=== PATIENT | female | born 1935 | race Caucasian/White ===

== ENCOUNTER 2019-09-29 13:41 | Observation (INO) ==
[2019-09-29 14:41] LABS: Basophils % 0.6 % (0.0-0.8); Eosinophils # 0.1 10*3/uL (0.0-0.87); Eosinophils % 0.9 % (0.00-10.9); Hematocrit 42.5 VOL% (35.7-47.0); Hemoglobin 14.7 GM/DL (12.0-16.0); Immature Granulocytes % 0.1 %; Immature Granulocytes Absolute 0.01 #; Lymphocytes # 1.8 10*3/uL (1.4-4.0); Lymphocytes % 26.3 % (21.3-54.2); Mean Corpuscular HGB Conc 34.6 GM/DL (32-36); Mean Corpuscular Volume 89.1 FL (87-102); Mean Platelet Volume 9.3 FL (9.6-12.0); Monocytes % 5.9 % (1.7-12.7); Neutrophils % 66.2 % (38.7-73.9); Platelet Count 260 T/CUMM (130-400); Red Blood Count 4.77 MC/CUMM (3.8-5.5); Red Cell Distribution Width 12.7 % (9.3-17.3); White Blood Count 6.8 T/CUMM (4-12)
[2019-09-29 14:45] LABS: PT Patient Result 10.4 SECS (9.6-12.2)
[2019-09-29 14:59] LABS: Calcium 9.2 MG/DL (8.5-10.1); Osmolality,Calculated 266.4 MOS/KG (273-304)
[2019-09-29] MEDS ORDERED: MAGNESIUM SULF RIDER 2 GM in PREMIX 1 EACH IV PRN (15:46)
[2019-09-29] MEDS ORDERED: MAGNESIUM SULF RIDER 4 GM in PREMIX 1 EACH IV PRN (15:46)
[2019-09-29] MEDS ORDERED: amLODIPine 10 MG TABLET PO PRN (15:50)
[2019-09-29] MEDS: ATENOLOL 50 MG TABLET PO SCH (20:40)
[2019-09-29] MEDS: ATORVASTATIN 40 MG TABLET PO SCH (20:40)
[2019-09-29] MEDS: cloNIDine 0.1 MG TABLET PO SCH (20:40)
[2019-09-29] MEDS ORDERED: FAMOTIDINE 20 MG TABLET PO PRN (20:47)
[2019-09-29] MEDS: SERTRALINE 25 MG TABLET PO SCH (23:52)
[2019-09-29] MEDS: GABAPENTIN 100 MG CAPSULE PO SCH (23:52)
[2019-09-29] MEDS: MAGNESIUM CHLORIDE 64 MG TABLET PO SCH (23:52)
[2019-09-29] MEDS: POTASSIUM CHLORIDE 10 MEQ TABLET PO SCH (23:53)
[2019-09-29] MEDS: PILOCARPINE 4% RIGHT EYE SCH (23:55)
[2019-09-30] MEDS ORDERED: POTASSIUM CHLORIDE RIDER 10 MEQ in PREMIX 1 EACH IV PRN (08:01)
[2019-09-30] MEDS ORDERED: ASPIRIN 325 MG TABLET PO ONE (08:01)
[2019-09-30] MEDS ORDERED: MAGNESIUM SULF RIDER 2 GM in PREMIX 1 EACH IV PRN (08:01)
[2019-09-30] MEDS ORDERED: DIAZEPAM 5 MG TABLET PO ONE (08:01)
[2019-09-30] MEDS ORDERED: diphenhydrAMINE CAP 25 MG CAPSULE PO ONE (08:01)
[2019-09-30] MEDS ORDERED: MORPHINE 4 MG/1 ML VIAL IV PRN (08:16)
[2019-09-30] MEDS ORDERED: NITROGLYCERIN SL 0.4 MG TABLET SL PRN (08:16)
[2019-09-30] MEDS ORDERED: SODIUM CHLORIDE 0.9% 1,000 ML IV SCH (08:30)
[2019-09-30 08:50] LABS: Basophils % 0.5 % (0.0-0.8); Eosinophils # 0.1 10*3/uL (0.0-0.87); Eosinophils % 2.4 % (0.00-10.9); Hematocrit 41.7 VOL% (35.7-47.0); Hemoglobin 14.3 GM/DL (12.0-16.0); Immature Granulocytes % 0.2 %; Immature Granulocytes Absolute 0.01 #; Lymphocytes # 1.7 10*3/uL (1.4-4.0); Lymphocytes % 31.3 % (21.3-54.2); Mean Corpuscular HGB Conc 34.3 GM/DL (32-36); Mean Corpuscular Volume 90.3 FL (87-102); Mean Platelet Volume 9.4 FL (9.6-12.0); Monocytes % 10.2 % (1.7-12.7); Neutrophils % 55.4 % (38.7-73.9); Platelet Count 265 T/CUMM (130-400); Red Blood Count 4.62 MC/CUMM (3.8-5.5); Red Cell Distribution Width 12.9 % (9.3-17.3); White Blood Count 5.5 T/CUMM (4-12)
[2019-09-30] MEDS ORDERED: [UNRECOGNIZED DRUG - REMARK] PO SCH (09:00)
[2019-09-30 09:14] LABS: Calcium 9.5 MG/DL (8.5-10.1); Osmolality,Calculated 270.1 MOS/KG (273-304)
[2019-09-30 09:16] LABS: Risk Ratio 2.22
[2019-09-30] MEDS ORDERED: ASPIRIN CHEW 81 MG TABLET PO ONE (09:21)
[2019-09-30] MEDS ORDERED: LIDOCAINE 1% 20 ML VIAL ONE (09:37)
[2019-09-30] MEDS ORDERED: MIDAZOLAM 2 MG/2 ML VIAL ONE (09:41)
[2019-09-30] MEDS ORDERED: fentaNYL 100 MCG/2 ML VIAL ONE (09:41)
[2019-09-30] MEDS ORDERED: HEPARIN 5,000 UNIT/1 ML VIAL ONE (10:00)
[2019-09-30] MEDS: ASPIRIN EC 81 MG TABLET PO SCH (11:13)
[2019-09-30] MEDS: GABAPENTIN 100 MG CAPSULE PO SCH ×3 (14:48→21:55)
[2019-09-30] MEDS: amLODIPine 10 MG TABLET PO SCH (14:48)
[2019-09-30] MEDS: MULTIVITAMIN (CENTRUM) TABLET PO SCH (14:48)
[2019-09-30] MEDS: POTASSIUM CHLORIDE 10 MEQ TABLET PO SCH ×2 (14:49→21:55)
[2019-09-30] MEDS: FAMOTIDINE 20 MG TABLET PO SCH ×2 (14:49→21:56)
[2019-09-30] MEDS: MAGNESIUM CHLORIDE 64 MG TABLET PO SCH ×2 (14:49→21:55)
[2019-09-30] MEDS: CALCIUM (CARBONATE)/VITAMIN D 600 MG-400 UNIT TABLET PO SCH (14:55)
[2019-09-30] MEDS: PILOCARPINE 4% RIGHT EYE SCH ×4 (14:56→21:56)
[2019-09-30] MEDS ORDERED: diphenhydrAMINE CAP 25 MG CAPSULE PO PRN (16:45)
[2019-09-30] MEDS ORDERED: MAGNESIUM HYDROXIDE SUSP 30 ML UDCUP PO PRN (16:45)
[2019-09-30] MEDS: ATORVASTATIN 40 MG TABLET PO SCH (21:54)
[2019-09-30] MEDS: cloNIDine 0.1 MG TABLET PO SCH (21:55)
[2019-09-30] MEDS: ATENOLOL 50 MG TABLET PO SCH (21:56)
[2019-09-30] MEDS: SERTRALINE 25 MG TABLET PO SCH (21:56)
[2019-10-01 06:23] LABS: Basophils % 0.6 % (0.0-0.8); Eosinophils # 0.2 10*3/uL (0.0-0.87); Eosinophils % 2.3 % (0.00-10.9); Hematocrit 40.6 VOL% (35.7-47.0); Hemoglobin 13.8 GM/DL (12.0-16.0); Immature Granulocytes % 0.3 %; Immature Granulocytes Absolute 0.02 #; Lymphocytes # 2.1 10*3/uL (1.4-4.0); Lymphocytes % 30.4 % (21.3-54.2); Mean Corpuscular Volume 89.8 FL (87-102); Mean Platelet Volume 9.3 FL (9.6-12.0); Monocytes % 8.7 % (1.7-12.7); Neutrophils % 57.7 % (38.7-73.9); Platelet Count 253 T/CUMM (130-400); Red Blood Count 4.52 MC/CUMM (3.8-5.5); Red Cell Distribution Width 12.9 % (9.3-17.3); White Blood Count 6.8 T/CUMM (4-12)
[2019-10-01 06:43] LABS: Calcium 8.7 MG/DL (8.5-10.1); Osmolality,Calculated 275.8 MOS/KG (273-304)
[2019-10-01 08:12] VITALS: BP 122/58
[2019-10-01] MEDS ORDERED: PILOCARPINE 4% RIGHT EYE SCH (09:00)
[2019-10-01] MEDS: MAGNESIUM CHLORIDE 64 MG TABLET PO SCH (09:32)
[2019-10-01] MEDS: amLODIPine 10 MG TABLET PO SCH (09:32)
[2019-10-01] MEDS: ASPIRIN EC 81 MG TABLET PO SCH (09:32)
[2019-10-01] MEDS: CALCIUM (CARBONATE)/VITAMIN D 600 MG-400 UNIT TABLET PO SCH (09:32)
[2019-10-01] MEDS: POTASSIUM CHLORIDE 10 MEQ TABLET PO SCH (09:33)
[2019-10-01] MEDS: FAMOTIDINE 20 MG TABLET PO SCH (09:33)
[2019-10-01] MEDS: GABAPENTIN 100 MG CAPSULE PO SCH (09:33)
[2019-10-01] MEDS: MULTIVITAMIN (CENTRUM) TABLET PO SCH (09:59)
== END 2019-10-01 12:35 | disposition home or self-care (01) ==
LOC: N.EDINP 13:41 → N.ED 13:41 → N.TELES 16:27
PROVIDERS: ADMIT Internal Medicine Cardiovascular Disease; ATTEND Internal Medicine Cardiovascular Disease
PROC: CLCCHCL (ICD-10-PCS; 2019-09-30 11:15)

== ENCOUNTER 2022-03-11 08:45 | Observation (INO) ==
[2022-03-11 10:52] LABS: Basophils % 0.3 % (0.0-0.8); Eosinophils % 0.4 % (0.00-10.9); Hematocrit 44.1 VOL% (35.7-47.0); Hemoglobin 15.5 GM/DL (12.0-16.0); Immature Granulocytes % 0.3 %; Immature Granulocytes Absolute 0.03 #; Lymphocytes % 17.9 % (21.3-54.2); Mean Corpuscular HGB Conc 35.1 GM/DL (32-36); Mean Corpuscular Volume 86.6 FL (87-102); Mean Platelet Volume 8.9 FL (9.6-12.0); Monocytes # 0.5 10*3/uL (0.11-0.8); Monocytes % 4.9 % (1.7-12.7); Neutrophils % 76.2 % (38.7-73.9); Platelet Count 317 T/CUMM (130-400); Red Blood Count 5.09 MC/CUMM (3.8-5.5); Red Cell Distribution Width 12.5 % (9.3-17.3); White Blood Count 10.9 T/CUMM (4-12)
[2022-03-11 10:59] LABS: Protein,Urine Trace mg/dL (Negative); RBC,Urine 1 /HPF (0-4); Squamous Epithelial Cell,Urine Occasional /HPF (0-10); Urine Appearance Clear (Clear); Urine Color Yellow (Yellow)
[2022-03-11] MEDS ORDERED: SODIUM PHOSPHATE ENEMA 133 ML BOTTLE RECTAL STA (10:59)
[2022-03-11 11:00] LABS: Bilirubin,Urine Negative (Negative); Blood, Urine Trace mg/dL (Negative); Glucose,Urine (UA) Negative (Negative); Ketones,Urine Negative (Negative); Nitrite,Urine Negative (Negative); Urine Urobilinogen 0.2 eU/dL (<2.0)
[2022-03-11 11:11] LABS: Albumin 4.3 G/DL (3.4-5.0); Bilirubin,Total 1.1 MG/DL (0.20-1.00); Calcium 10.2 MG/DL (8.5-10.1); Osmolality,Calculated 254.2 MOS/KG (273-304); Potassium 3.9 MMOL/L (3.5-5.1); Total Protein 7.8 G/DL (6.4-8.2)
[2022-03-11] MEDS ORDERED: ACETAMINOPHEN 325 MG TABLET PO PRN (12:00)
[2022-03-11] MEDS ORDERED: ONDANSETRON 4 MG/2 ML VIAL IV PRN (12:00)
[2022-03-11] MEDS: SODIUM CHLORIDE 0.9% 1,000 ML IV SCH (13:15)
[2022-03-11] MEDS: ENOXAPARIN 30 MG/0.3 ML SYRINGE SUBCUT SCH (13:16)
[2022-03-11] MEDS: FAMOTIDINE 20 MG TABLET PO SCH (17:50)
[2022-03-11] MEDS: PILOCARPINE 4% RIGHT EYE SCH ×2 (18:22→21:00)
[2022-03-11] MEDS: LACTULOSE 20 GM/30 ML UDCUP PO SCH (20:24)
[2022-03-11] MEDS: cloNIDine 0.1 MG TABLET PO SCH (20:26)
[2022-03-11] MEDS: DOCUSATE SODIUM 100 MG CAPSULE PO SCH (20:27)
[2022-03-11] MEDS: POTASSIUM CHLORIDE 10 MEQ TABLET PO SCH (20:29)
[2022-03-11] MEDS: atenoloL 50 MG TABLET PO SCH (20:30)
[2022-03-11] MEDS: MAGNESIUM CHLORIDE 64 MG TABLET PO SCH (20:30)
[2022-03-12] MEDS: PANTOPRAZOLE 40 MG TABLET PO SCH (05:36)
[2022-03-12 05:52] LABS: Calcium 9.3 MG/DL (8.5-10.1); Osmolality,Calculated 267.2 MOS/KG (273-304); Potassium 3.6 MMOL/L (3.5-5.1)
[2022-03-12] MEDS ORDERED: BISACODYL 5 MG TABLET PO ONE (08:31)
[2022-03-12] MEDS: LACTULOSE 20 GM/30 ML UDCUP PO SCH ×2 (09:00→22:20)
[2022-03-12] MEDS: BACILLUS COAGULANS CAPLET PO SCH (09:01)
[2022-03-12] MEDS: FAMOTIDINE 20 MG TABLET PO SCH ×2 (09:01→16:43)
[2022-03-12] MEDS: ATORVASTATIN 40 MG TABLET PO SCH (09:01)
[2022-03-12] MEDS: DOCUSATE SODIUM 100 MG CAPSULE PO SCH ×2 (09:01→22:20)
[2022-03-12] MEDS: ASPIRIN EC 81 MG TABLET PO SCH (09:01)
[2022-03-12] MEDS: POTASSIUM CHLORIDE 10 MEQ TABLET PO SCH ×2 (09:01→22:21)
[2022-03-12] MEDS: MAGNESIUM CHLORIDE 64 MG TABLET PO SCH ×2 (09:01→22:21)
[2022-03-12] MEDS: CHOLECALCIFEROL 5,000 UNIT TABLET PO SCH (09:02)
[2022-03-12] MEDS: PIPERACILLIN/TAZOBACTAM 3,375 MG in SODIUM CHLORIDE 0.9% 100 ML IV SCH ×2 (09:07→16:44)
[2022-03-12] MEDS: amLODIPine 10 MG TABLET PO SCH (12:16)
[2022-03-12] MEDS: PILOCARPINE 4% RIGHT EYE SCH ×3 (13:53→22:21)
[2022-03-12] MEDS: ENOXAPARIN 30 MG/0.3 ML SYRINGE SUBCUT SCH (13:58)
[2022-03-12] MEDS: SODIUM CHLORIDE 0.9% 1,000 ML IV SCH ×2 (16:41→22:20)
[2022-03-12] MEDS: atenoloL 50 MG TABLET PO SCH (20:29)
[2022-03-12] MEDS: cloNIDine 0.1 MG TABLET PO SCH (20:29)
[2022-03-12] MEDS ORDERED: BISACODYL 5 MG TABLET PO SCH (21:00)
[2022-03-13] MEDS: PIPERACILLIN/TAZOBACTAM 3,375 MG in SODIUM CHLORIDE 0.9% 100 ML IV SCH ×2 (00:40→08:30)
[2022-03-13] MEDS: PANTOPRAZOLE 40 MG TABLET PO SCH (05:32)
[2022-03-13] MEDS: SODIUM CHLORIDE 0.9% 1,000 ML IV SCH (05:43)
[2022-03-13] MEDS: BACILLUS COAGULANS CAPLET PO SCH (08:28)
[2022-03-13] MEDS: ATORVASTATIN 40 MG TABLET PO SCH (08:28)
[2022-03-13] MEDS: ASPIRIN EC 81 MG TABLET PO SCH (08:28)
[2022-03-13] MEDS: FAMOTIDINE 20 MG TABLET PO SCH (08:28)
[2022-03-13] MEDS: POTASSIUM CHLORIDE 10 MEQ TABLET PO SCH (08:28)
[2022-03-13] MEDS: MAGNESIUM CHLORIDE 64 MG TABLET PO SCH (08:28)
[2022-03-13] MEDS: DOCUSATE SODIUM 100 MG CAPSULE PO SCH (08:30)
[2022-03-13] MEDS: LACTULOSE 20 GM/30 ML UDCUP PO SCH (08:30)
[2022-03-13] MEDS: PILOCARPINE 4% RIGHT EYE SCH (08:30)
[2022-03-13 11:41] VITALS: BP 136/59
[2022-03-13] MEDS: CHOLECALCIFEROL 5,000 UNIT TABLET PO SCH (12:00)
[2022-03-13] MEDS: amLODIPine 10 MG TABLET PO SCH (12:00)
== END 2022-03-13 12:33 | disposition home or self-care (01) ==
LOC: N.EDINP 08:45 → N.ED 08:45 → N.EDINP 13:58 → N.3E 14:16
PROVIDERS: ADMIT Family Medicine; ATTEND Family Medicine